=== PATIENT | male | born 1935 | race Caucasian/White ===

== ENCOUNTER 2018-08-18 11:04 | Emergency (ER) | payer OTHER ==
[2018-08-18 11:12] VITALS: BP 149/72
--- NOTE | 2018-08-18 11:57 | EDPHY ---
H & P Stated Complaint: hematuria Time Seen by Provider: 08/18/18 11:30 HPI/ROS: CHIEF COMPLAINT: Hematuria HISTORY OF PRESENT ILLNESS: 83-year-old male with history of kidney stones and prior prostate surgery presents with gross hematuria. He had 1 episode of gross hematuria 2 days ago. Has been urinating normally since, without blood. No dysuria, urinary frequency and no flank/abdominal pain. Asymptomatic today. No anticoagulation or aspirin. REVIEW OF SYSTEMS: complete 10 point ROS reviewed and is negative except for the noted elements in the HPI - Personal History Current Tetanus Diphtheria and Acellular Pertussis (TDAP): Yes - Medical/Surgical History Hx Asthma: No Hx Chronic Respiratory Disease: No Hx Diabetes: No Hx Cardiac Disease: Yes Hx Renal Disease: No Hx Cirrhosis: No Hx Alcoholism: No Hx HIV/AIDS: No Hx Splenectomy or Spleen Trauma: No Other PMH: htn artificial heart valve bladder stones - Social History Smoking Status: Former smoker - Physical Exam Exam: General Appearance: Alert, pleasant Eyes: Pupils equal and round, no conjunctival pallor ENT, Mouth: Mucous membranes moist Neck: Normal inspection Respiratory: Lungs are clear to auscultation Cardiovascular: Regular rate and rhythm Gastrointestinal: Abdomen is soft and nontender Neurological: A&O, nonfocal, normal gait Skin: Warm and dry, no rash Extremities: Normal inspection Psychiatric: Mood and affect normal Constitutional: Initial Vital Signs Temperature (C) 36.4 C 08/18/18 11:10 Heart Rate 72 08/18/18 11:10 Respiratory Rate 18 08/18/18 11:10 Blood Pressure 149/72 H 08/18/18 11:10 O2 Sat (%) 98 08/18/18 11:10 O2 Delivery Mode Room Air Allergies/Adverse Reactions: No Known Allergies Allergy (Unverified 08/18/18 11:09) Home Medications: Medication Instructions Recorded Amlodipine Besylate 08/18/18 Medical Decision Making ED Course/Re-evaluation: This pt presents with one episode of gross hematuria 2 days ago. UA negative and pt denies pain. No evidence of UTI, ureteral stone, ongoing hemorrhage. Safe/stable for d/c home. Encouraged pt to f/u urology. Differential Diagnosis: Includes though not limited to urinary tract infection, kidney stone, tumor, coagulopathy. - Data Points Laboratory Results: 08/18/18 11:30 Urine Color YELLOW Urine Appearance CLEAR Urine pH 5.0 (5.0-7.5) Ur Specific [place] 1.024 (1.002-1.030) Urine Protein NEGATIVE (NEGATIVE) Urine Ketones NEGATIVE (NEGATIVE) Urine Blood NEGATIVE (NEGATIVE) Urine Nitrate NEGATIVE (NEGATIVE) Urine Bilirubin NEGATIVE (NEGATIVE) Urine Urobilinogen NEGATIVE EU EU (0.2-1.0) Ur Leukocyte Esterase NEGATIVE (NEGATIVE) Urine Glucose NEGATIVE (NEGATIVE) Departure - Departure Disposition: Home, Routine, Self-Care Clinical Impression: Hematuria Qualifiers: Hematuria type: gross Qualified Code(s): R31.0 - Gross hematuria Condition: Good Instructions: Hematuria (ED) Additional Instructions: Your urinalysis is normal today. There is no blood in your urine and no evidence of a urinary tract infection. Call to make an appointment with Urology. Referrals: Jose Martinez MD [Medical Doctor] - As per Instructions (Call to make an appointment.)
== END 2018-08-18 12:03 | disposition home or self-care (01) ==
DX: R31.0 Gross hematuria (principal); I10 Essential (primary) hypertension; Z87.442 Personal history of urinary calculi; Z87.891 Personal history of nicotine dependence